=== PATIENT | male | born 2000 | race Caucasian/White ===

== ENCOUNTER 2024-05-25 14:45 | Emergency (ER) | payer OTHER, BC, SELFPAY ==
--- NOTE | 2024-05-25 14:54 | ED.GENADULT ---
HPI - General Adult General Chief complaint: Wound/Laceration Stated complaint: R INDEX FINGER LACERATION Time Seen by Provider: 05/25/24 14:54 Source: patient Mode of arrival: ambulatory Limitations: no limitations History of Present Illness HPI narrative: 23-year-old male patient presents to the [facility] with complaints of a right index finger laceration. Patient states he works at the [employer] who was opening a can of dog food and cut his finger. Patient states he thinks his last tetanus shot was about 9-10 years ago. Related Data Allergies Allergy/AdvReac Type Severity Reaction Status Date / Time diphenhydramine (From Allergy Intermediate Rash Verified 05/25/24 15:48 Benadryl) Review of Systems Review of Systems: CONSTITUTIONAL: Denies fever, chills, or sweats. EYES: Denies visual changes, redness, or discharge. ENT: Denies rhinorrhea, congestion, sore throat, or otalgia. CARDIOVASCULAR: Denies chest pain, palpitations, or edema. RESPIRATORY: Denies cough or dyspnea. GASTROINTESTINAL: Denies abdominal pain, nausea, vomiting, or diarrhea. GENITOURINARY: Denies dysuria or hematuria. SKIN: Denies rash or itching. Positive laceration to right index finger MUSCULOSKELETAL: Denies back pain, joint pain, or myalgia. NEUROLOGIC: Denies headache, numbness, or weakness. PSYCHIATRIC: Denies anxiety or depression. [facility] Family History Family History Father Hypertension Depression Mother No problems noted. Sibling No problems noted. Sibling No problems noted. Social History Social History Smoking status: Never smoker Alcohol intake: never Substance use: never Substance use type: does not use Do You Feel Safe in your Home?: Yes Lack of Transportation: No Lack of Food: Never True Current Housing: I Have Housing Concerned About Future Housing: No Difficulty Paying Gas/Electric Bills: No Difficulty Paying for Meds: No Currently Unemployed: No Education: High School Diploma/GED Difficulty w/ Childcare or Family Care: No Living arrangements: with family Occupation/Education: occupation Additional occupation/education comments: Student at [employer] majoring in [employer]. Gender identity (if verbalized by the patient): Male Sexual Orientation (if Verbalized by the Patient): Straight or Heterosexual Spiritual care concerns: No Comments At the time of my signature I agree with nursing past medical history, surgical, social, and family history. There is no relevant family history pertinent to the presenting complaint. Exam Narrative: GENERAL: Well-appearing, well-nourished, and in no acute distress. HEAD: Normocephalic, atraumatic. EYES: PERRLA and EOMI. ENT: Nares clear, no rhinorrhea or epistaxis. Mucous membranes moist. NECK: Supple. No lymphadenopathy CHEST: Clear to auscultation. No respiratory distress. HEART: Regular rate and rhythm. No murmur heard. Normal peripheral pulses. ABDOMEN: Soft, nontender, nondistended, normal active bowel sounds. EXTREMITIES: Normal range of motion. No edema. SKIN: Warm, dry, no rash. patient has approximately 1 cm linear laceration across the palm side of the distal tip of the right index finger. No joint involvement. The laceration it is bleeding at this time it does appear well approximated no deep tendon or muscle involvement noted. Patient does have excellent range of motion. NEURO: No focal deficits. Alert and oriented x3. Course Course Level of Care: Express Care Visit Vital Signs Vital signs: Vital Signs Temperature 36.6 C 05/25/24 15:30 Pulse Rate 87 05/25/24 15:30 Respiratory Rate 16 05/25/24 15:30 Blood Pressure 171/100 H 05/25/24 15:30 Pulse Oximetry 100 05/25/24 15:30 Temperature 36.6 C 05/25/24 15:30 Pulse Rate 87 05/25/24 15:30 Respiratory Rate 16 05/25/24 15:30 Blood Pressure 171/100 H 05/25/24 15:30 Pulse Oximetry 100 05/25/24 15:30 Vital signs reviewed. Procedures Laceration Laceration 1: Date: 05/25/24 Time: 16:27 Site: hand ( right index finger) Side (If applicable): right Size (cm): 1 Description: linear Depth: simple, single layer Local Anesthetic: lidocaine 1% and none Pre-repair: wound explored and irrigated ====== Skin Level ====== ====== Subcutaneous Layer ====== ====== Muscle Layer ====== ====== Tendon Layer ====== Dressing: The Procedure was explained and verbal consent was obtained. Copious irrigation was done with saline and Shur-Clens and the wound was explored. There was no foreign body or deep structure injury noted. Patient had good range of motion under anesthesia. Wound edges were approximated with good alignment using skin adhesive and Steri-Strips. There were 2 Steri-Strips placed. nonadherent dressing over it with 4 x 4's and wrapped with gauze. The patient tolerated the procedure well without adverse effects. Medical Decision Making MDM Narrative Medical decision making narrative: Plan of care for patient is to repair the right index finger most likely with glue and Steri-Strips. We are holding pressure to stop the bleeding at this time will repair once the bleeding stops. Differential Diagnosis Differential Diagnosis: Differential diagnosis: Simple, intermediate, or complex laceration. Vital Signs Vital Signs: Vital Signs Temperature 36.6 C 05/25/24 15:30 Pulse Rate 87 05/25/24 15:30 Respiratory Rate 16 05/25/24 15:30 Blood Pressure 171/100 H 05/25/24 15:30 Pulse Oximetry 100 05/25/24 15:30 Temperature 36.6 C 05/25/24 15:30 Pulse Rate 87 05/25/24 15:30 Respiratory Rate 16 05/25/24 15:30 Blood Pressure 171/100 H 05/25/24 15:30 Pulse Oximetry 100 05/25/24 15:30 Critical Care Time Critical Care Time Critical Care Time: No Discharge Plan Discharge Clinical Impression: Laceration of right index finger Patient Disposition: Home, Self-Care Condition: Stable Instructions: Antibiotic Form, Skin Adhesive Care (ED), Steristrips (ED) Additional Instructions: -adhesive works like a bandage; do not use antibiotic onitment as it can break down the adhesive -You can shower while the adhesive is on your skin, but do not take a bath or soak or scrub the area for 7-10 days. Dry your skin by patting it gently with a towel. -The adhesive will peel off on its own; usually by 5-10days. If after 10 days, you still have adhesive on you, you can use antibiotic ointment or petroleum jelly to get it off. After you heal, you should protect the scar from the sun. Use sunscreen on the area or wear clothes or a hat that covers the scar. Follow up with your PCP is needed Patient Language: Citizen Of [place] Prescriptions: New cephalexin 500 mg capsule 500 mg PO Q12H 5 Days Qty: 10 0RF Follow-up/Referrals: Mikel Henao MD [Primary Care Provider] - Time of Disposition: 16:26
[2024-05-25 15:30] VITALS: BP 171/100; PULSE 87; RESP 16; TEMP 36.6; O2SAT 100
[2024-05-25] MEDS: TETANUS,DIPHTHERIA,AC PERTUSSIS ADULT (0.5 ML) BOOSTRIX IM (15:55)
== END 2024-05-25 16:29 | disposition home or self-care (01) ==
PROVIDERS: Emergency Provider Nurse Practitioner Family; PCP Family Medicine
DX: S61.210A Laceration without foreign body of right index finger without damage to nail, initial encounter (principal); W26.8XXA Contact with other sharp object(s), not elsewhere classified, initial encounter; Z23 Encounter for immunization
CPT/HCPCS: 12001; 90471; 90715; 99212; G0463